=== PATIENT | female | born 1990 | race Two or more races ===

== ENCOUNTER 2019-07-10 15:49 | Emergency (ER) | payer BC ==
[~2019-07-10] VITALS: Ht 177.8 cm; Wt 59.0 kg
--- NOTE | 2019-07-10 17:00 | NUR ---
PATIENT BIB MOTHER, C/O COUGH AND CONGESTION X 2 WEEKS, FEVER X 1 WEEK. ON ROOM AIR, BREATHING EVENLY AND UNLABORED. CONNECTED TO THE MONITOR AND PULSE OX. KEPT COMFORTABLE, WILL CONTINUE TO MONITOR ACCORDINGLY.
[2019-07-10 18:08] VITALS: BP 110/60
--- NOTE | 2019-07-10 18:09 | NUR ---
Patient discharged to home in stable condition. Written and verbal after care instructions given. Patient verbalizes understanding of instruction.
== END 2019-07-10 18:08 | disposition home or self-care (01) ==
LOC: ER 15:50
DX: J20.9 Acute bronchitis, unspecified (principal)
CPT/HCPCS: 71045-TC

== ENCOUNTER 2020-03-16 23:38 | Emergency (ER) | payer BC, MEDICAID ==
[~2020-03-16] VITALS: Ht 162.6 cm; Wt 56.7 kg
[2020-03-16 23:38] VITALS: BP 110/60
[2020-03-17] MEDS ORDERED: TDAP [DIPH/PERTUSSIS/TET] 0.5 ML VIAL IM ONE
[2020-03-17] MEDS: TDAP [DIPH/PERTUSSIS/TET] 0.5 ML VIAL IM ONE (00:06)
--- NOTE | 2020-03-17 00:06 | NUR ---
BROUGHT TO CT
[2020-03-17] MEDS ORDERED: LIDOCAINE 1%-EPI 1:100,000 20 ML VIAL ONE (00:25)
--- NOTE | 2020-03-17 00:43 | NUR ---
DR ORELLANA AT BEDSIDE
--- NOTE | 2020-03-17 00:53 | NUR ---
Patient discharged to home in stable condition. Written and verbal after care instructions given. Patient verbalizes understanding of instruction.pt. ambulatory with a steady gait
== END 2020-03-17 00:57 | disposition home or self-care (01) ==
LOC: ER 23:44
DX: S01.81XA Laceration without foreign body of other part of head, initial encounter (principal); R42 Dizziness and giddiness; W01.0XXA Fall on same level from slipping, tripping and stumbling without subsequent striking against object, initial encounter; Y93.89 Activity, other specified; Y92.89 Other specified places as the place of occurrence of the external cause; Y99.8 Other external cause status
CPT/HCPCS: 12011; 70450; 90471; 90715; 99284; J3490